=== PATIENT | female | born 1955 | race Caucasian/White ===

== ENCOUNTER 2018-02-21 10:54 | Emergency (ER) | payer BC, OTHER ==
[2018-02-21 11:29] VITALS: BP 134/83; PULSE 65; RESP 20; TEMP 98.6
[2018-02-21] MEDS ORDERED: ASPIRIN 81 MG PO STA (11:52)
[2018-02-21] MEDS ORDERED: NITROGLYCERIN OINT 1 INCH/GM PACKET TOPICAL STA (11:52)
--- NOTE | 2018-02-21 11:55 | ED ---
General Adult HPI - General Chief complaint: Chest Pain Stated complaint: Chest pain Time Seen by Provider: 02/21/18 11:33 Source: patient, RN notes reviewed Mode of arrival: ambulatory Limitations: no limitations - History of Present Illness Initial comments: Patient is a pleasant 62-year-old female presenting to the emergency Department with complaints of chest discomfort and shortness of breath. Onset of symptoms was a few days ago. Patient has mild tightness in her left chest and left upper back. Patient does have some mild dyspnea. Patient has had some mild palpitations. Patient has had some belching. Patient states at times stretching her back out does help improve her symptoms for a short period. Discomfort has been mild rated 3/10. Patient does not feel she needs pain medicine at this time. No fevers. No significant cough. No history of similar symptoms previously. - Related Data Home Medications Medication Instructions Recorded Confirmed Ibuprofen [Motrin] 800 mg PO DAILY PRN 02/21/18 02/21/18 Allergies Allergy/AdvReac Type Severity Reaction Status Date / Time No Known Allergies Allergy Verified 02/21/18 13:46 Review of Systems ROS Statement: Those systems with pertinent positive or pertinent negative responses have been documented in the HPI. ROS Other: All systems not noted in ROS Statement are negative. Constitutional: Denies: fever Eyes: Denies: eye pain ENT: Denies: ear pain Respiratory: Reports: dyspnea. Denies: cough Cardiovascular: Reports: chest pain Endocrine: Denies: fatigue Gastrointestinal: Denies: abdominal pain Genitourinary: Denies: dysuria Musculoskeletal: Reports: as per HPI Skin: Denies: rash Neurological: Denies: weakness Past Medical History Past Medical History: No Reported History History of Any Multi-Drug Resistant Organisms: None Reported Past Surgical History: Orthopedic Surgery Additional Past Surgical History / Comment(s): fx ankle/leg Past Psychological History: No Psychological Hx Reported Smoking Status: Never smoker Past Alcohol Use History: Occasional Past Drug Use History: None Reported General Exam Limitations: no limitations General appearance: alert, in no apparent distress Head exam: Present: atraumatic Eye exam: Present: normal appearance, PERRL ENT exam: Present: normal oropharynx Neck exam: Present: normal inspection Respiratory exam: Present: normal lung sounds bilaterally, chest wall tenderness (Mild left upper chest wall) Cardiovascular Exam: Present: regular rate, normal rhythm Expanded Peripheral pulses: 2+: Radial (R), Radial (L), Dorsalis Pedis (R), Dorsalis Pedis (L) GI/Abdominal exam: Present: soft. Absent: distended, tenderness Extremities exam: Present: normal inspection. Absent: pedal edema, calf tenderness Back exam: Present: normal inspection. Absent: tenderness Neurological exam: Present: alert Psychiatric exam: Present: normal affect, normal mood Skin exam: Present: normal color Course Vital Signs 02/21/18 11:26 Temperature 98.6 F Pulse Rate 65 Respiratory 20 Rate Blood Pressure 134/83 O2 Sat by Pulse 99 Oximetry EKG Findings - EKG Comments: EKG Findings:: Sinus bradycardia 59. MI 188. QRS 80. QT 452. QTC 447. Normal axis. Normal QRS. No acute ST change. Medical Decision Making - Medical Decision Making Patient reevaluated and resting comfortably in bed. No significant symptoms at this time. Patient updated on results and recommendations. Patient is advised to see in the hospital for further testing and evaluation and treatment. This includes cardiology consult. Patient was made aware of limitations of tests and emergency department. Patient is made aware that heart attack and other causes of symptoms has not been ruled out. Patient is also made aware that risk for heart attack in the near future could be present. Despite this patient refuses stay and will leave AGAINST MEDICAL ADVICE. 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 Patient is advised close follow -up, aspirin daily and to return if symptoms worsen - Lab Data Result diagrams: 02/21/18 12:22 02/21/18 12:22 Lab Results 02/21/18 02/21/18 02/21/18 Range/Units 12:22 12:22 12:22 WBC 5.4 (3.8-10.6) k/uL RBC 4.36 (3.80-5.40) m/uL Hgb 13.9 (11.4-16.0) gm/dL Hct 41.7 (34.0-46.0) % MCV 95.6 (80.0-100.0) fL MCH 31.9 (25.0-35.0) pg MCHC 33.4 (31.0-37.0) g/dL RDW 13.0 (11.5-15.5) % Plt Count 250 (150-450) k/uL Neutrophils % 64 % Lymphocytes % 26 % Monocytes % 6 % Eosinophils % 2 % Basophils % 1 % Neutrophils # 3.4 (1.3-7.7) k/uL Lymphocytes # 1.4 (1.0-4.8) k/uL Monocytes # 0.3 (0-1.0) k/uL Eosinophils # 0.1 (0-0.7) k/uL Basophils # 0.0 (0-0.2) k/uL PT (9.0-12.0) sec INR (<1.2) APTT (22.0-30.0) sec D-Dimer (<0.60) mg/L FEU Sodium 139 (137-145) mmol/L Potassium 5.5 H (3.5-5.1) mmol/L Chloride 107 (98-107) mmol/L Carbon Dioxide 25 (22-30) mmol/L Anion Gap 7 mmol/L BUN 14 (7-17) mg/dL Creatinine 0.53 (0.52-1.04) mg/dL Est GFR (CKD-EPI)AfAm >90 (>60 ml/min/1.73 sqM) Est GFR (CKD-EPI)NonAf >90 (>60 ml/min/1.73 sqM) Glucose 71 L (74-99) mg/dL Calcium 9.5 (8.4-10.2) mg/dL Magnesium 2.1 (1.6-2.3) mg/dL Total Bilirubin 0.9 (0.2-1.3) mg/dL AST 43 H (14-36) U/L ALT 30 (9-52) U/L Alkaline Phosphatase 53 (38-126) U/L Total Creatine Kinase 109 (30-135) U/L CK-MB (CK-2) 1.1 (0.0-2.4) ng/mL CK-MB (CK-2) Rel Index 1.0 Troponin I <0.012 (0.000-0.034) ng/mL NT-Pro-B Natriuret Pep pg/mL Total Protein 7.5 (6.3-8.2) g/dL Albumin 4.6 (3.5-5.0) g/dL 02/21/18 02/21/18 Range/Units 12:22 12:22 WBC (3.8-10.6) k/uL RBC (3.80-5.40) m/uL Hgb (11.4-16.0) gm/dL Hct (34.0-46.0) % MCV (80.0-100.0) fL MCH (25.0-35.0) pg MCHC (31.0-37.0) g/dL RDW (11.5-15.5) % Plt Count (150-450) k/uL Neutrophils % % Lymphocytes % % Monocytes % % Eosinophils % % Basophils % % Neutrophils # (1.3-7.7) k/uL Lymphocytes # (1.0-4.8) k/uL Monocytes # (0-1.0) k/uL Eosinophils # (0-0.7) k/uL Basophils # (0-0.2) k/uL PT 10.3 (9.0-12.0) sec INR 1.0 (<1.2) APTT 23.8 (22.0-30.0) sec D-Dimer 0.34 (<0.60) mg/L FEU Sodium (137-145) mmol/L Potassium (3.5-5.1) mmol/L Chloride (98-107) mmol/L Carbon Dioxide (22-30) mmol/L Anion Gap mmol/L BUN (7-17) mg/dL Creatinine (0.52-1.04) mg/dL Est GFR (CKD-EPI)AfAm (>60 ml/min/1.73 sqM) Est GFR (CKD-EPI)NonAf (>60 ml/min/1.73 sqM) Glucose (74-99) mg/dL Calcium (8.4-10.2) mg/dL Magnesium (1.6-2.3) mg/dL Total Bilirubin (0.2-1.3) mg/dL AST (14-36) U/L ALT (9-52) U/L Alkaline Phosphatase (38-126) U/L Total Creatine Kinase (30-135) U/L CK-MB (CK-2) (0.0-2.4) ng/mL CK-MB (CK-2) Rel Index Troponin I (0.000-0.034) ng/mL NT-Pro-B Natriuret Pep 133 pg/mL Total Protein (6.3-8.2) g/dL Albumin (3.5-5.0) g/dL - Radiology Data Radiology results: image reviewed (Chest x-ray shows no acute process) Disposition Clinical Impression: Chest pain Disposition: Left Against Medical Advice Instructions: Chest Pain (ED) Additional Instructions: Please follow-up with primary care physician and cardiology tomorrow. Aspirin daily. Return for increased pain, difficulty breathing, change in or worsening symptoms or any other concerns. Is patient prescribed a controlled substance at d/c from ED?: No Referrals: Sonido Schrader DO [STAFF PHYSICIAN] - 1-2 days Gayle Parham MD [STAFF PHYSICIAN] - 1-2 days Time of Disposition: 14:40
[2018-02-21 12:29] LABS: Basophils % (A) 1 %; Eosinophils # (A) 0.1 k/uL (0-0.7); Eosinophils % (A) 2 %; HCT 41.7 % (34.0-46.0); HGB 13.9 gm/dL (11.4-16.0); Lymphocytes # (A) 1.4 k/uL (1.0-4.8); Lymphocytes % (A) 26 %; MCH 31.9 pg (25.0-35.0); MCHC 33.4 g/dL (31.0-37.0); MCV 95.6 fL (80.0-100.0); Mean Platelet Volume 6.6; Monocytes # (A) 0.3 k/uL (0-1.0); Monocytes % (A) 6 %; Neutrophils # (A) 3.4 k/uL (1.3-7.7); Neutrophils % (A) 64 %; Platelet Count 250 k/uL (150-450); RBC 4.36 m/uL (3.80-5.40); WBC 5.4 k/uL (3.8-10.6)
[2018-02-21 12:37] LABS: ALT 30 U/L (9-52); AST 43 U/L (14-36); Albumin 4.6 g/dL (3.5-5.0); Alkaline Phosphatase 53 U/L (38-126); Anion Gap 7 mmol/L; Blood Urea Nitrogen 14 mg/dL (7-17); Calcium 9.5 mg/dL (8.4-10.2); Carbon Dioxide 25 mmol/L (22-30); Chloride 107 mmol/L (98-107); Glucose 71 mg/dL (74-99); Magnesium 2.1 mg/dL (1.6-2.3); Potassium 5.5 mmol/L (3.5-5.1); Sodium 139 mmol/L (137-145); Total Bilirubin 0.9 mg/dL (0.2-1.3); Total Protein 7.5 g/dL (6.3-8.2)
[2018-02-21 12:42] LABS: Creatine Kinase 109 U/L (30-135)
[2018-02-21 12:52] LABS: D-Dimer 0.34 mg/L FEU (<0.60); Partial Thromboplastin Time 23.8 sec (22.0-30.0); Prothrombin Time 10.3 sec (9.0-12.0)
[2018-02-21 12:55] LABS: Creatine Kinase MB 1.1 ng/mL (0.0-2.4); Troponin I <0.012 ng/mL (0.000-0.034)
--- NOTE | 2018-02-21 13:33 | XR ---
EXAMINATION TYPE: XR chest 2V DATE OF EXAM: 02/21/2018 HISTORY: Chest Pain. REFERENCE: Previous study dated 01/22/2016. FINDINGS: Lung volumes are prominent. Heart size is upper limits of normal. The lungs are clear. Pleu ral spaces are clear. IMPRESSION: 1. COPD. 2. BORDERLINE CARDIOMEGALY.
== END 2018-02-21 14:50 | disposition left against medical advice (07) ==
LOC: EC 10:54
DX: R07.89 Other chest pain (principal); R06.02 Shortness of breath; R00.2 Palpitations; Z53.29 Procedure and treatment not carried out because of patient's decision for other reasons
CPT/HCPCS: 36415; 71046; 80053; 82550; 82553; 83735; 83880; 84484; 85025; 85379; 85610; 85730; 93005; 99285

== ENCOUNTER → 2020-07-18 | Outpatient (CLI) | payer OTHER ==
--- NOTE | 2020-07-18 08:02 | CT ---
EXAMINATION TYPE: CT knee LT wo con DATE OF EXAM: 07/18/2020 COMPARISON: None. HISTORY: Left knee fx displaced lateral condyle tibia, and left knee pain. CT DLP: 528.10 mGycm Automated exposure control for dose reduction was used. FINDINGS: Acute comminuted displaced fracture through the proximal tibia is confirmed involving the lateral veronica f of the tibial meta-epiphysis. This extends to the lateral condyle. There is disruption of the artic ular surface with 13 mm depression on coronal image 23. Loss of articulating surface roughly 2.9 cm transversely same coronal image and 2.5 cm AP diameter sa gittal image 13 is present. Linear fracture line extends distally or inferiorly to the posterior late ral proximal tibial metadiaphysis. No intra-articular loose bodies or fracture fragments are identifi ed. Distal femur is intact. Medial tibial femoral and patellofemoral compartments shows mild narrowing an d mild spurring. There is moderate-sized suprapatellar joint effusion presumed posttraumatic. Extenso r tendon anteriorly is intact. There is superficial subcutaneous edema prepatellar extending into the infrapatellar region. IMPRESSION: Acute comminuted displaced intra-articular fracture lateral half of the proximal tibial m eta-epiphysis. Depression is noted as detailed above.
== END | disposition home or self-care (01) ==
LOC: RADCTMAIN 07:07
PROVIDERS: ATTEND Physician Assistant
DX: S82.192A Other fracture of upper end of left tibia, initial encounter for closed fracture (principal)

== ENCOUNTER → 2022-03-26 | Outpatient (CLI) | payer OTHER ==
--- NOTE | 2022-03-26 16:39 | CT ---
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 Contrast: None Technique: Axial images 2 mm thick sections. Reconstructed images in the coronal and sagittal planes. Images are obtained through plaster splint with 3-D reconstructed images were performed by the techn ologist on a separate computer. Note is made of some reconstruction artifact. FINDINGS: Soft tissue swelling is at the distal hand. Carpal bones as visualized appear intact. Some degenerati ve joint changes are likely present. There is a comminuted fracture of the distal metaphyseal radius with intra-articular extension. Some dorsal impaction may be present. Alignment appears preserved. There is reported displaced avulsion of the ulna. The ulna is not identified on these images. Nondisp laced fracture of the distal ulna may be present. IMPRESSION: 1. IMPACTED COMMINUTED FRACTURE DISTAL METAPHYSEAL RADIUS. 2. AVULSION OF THE ULNAR STYLOID
== END | disposition home or self-care (01) ==
LOC: RADCTMAIN 09:45
PROVIDERS: ATTEND Orthopaedic Surgery
DX: S52.612A Displaced fracture of left ulna styloid process, initial encounter for closed fracture (principal); S52.572A Other intraarticular fracture of lower end of left radius, initial encounter for closed fracture; X58.XXXA Exposure to other specified factors, initial encounter

== ENCOUNTER 2022-04-07 12:27 | Day surgery (SDC) | payer OTHER ==
[2022-04-01 14:32] VITALS: BMI 21.7
[2022-04-07 13:19] VITALS: TEMP 97.7
[2022-04-07] MEDS ORDERED: LACTATED RINGERS 1,000 ML IV ONE (13:28)
[2022-04-07] MEDS ORDERED: HYDROmorphone 0.5 MG/0.5 ML SYRINGE IVP PRN (13:34)
[2022-04-07] MEDS ORDERED: LACTATED RINGERS 1,000 ML IV SCH (13:34)
[2022-04-07] MEDS ORDERED: LIDOCAINE 1% (10MG/ML) FOR IV START INTRADERMA PRN (13:34)
[2022-04-07] MEDS ORDERED: DEXAMETHASONE SOD PHOSPHATE 4 MG/ML 1 ML VIAL IV ONE (13:34)
[2022-04-07] MEDS ORDERED: ONDANSETRON 4 MG/2 ML VIAL IVP ONE (13:34)
[2022-04-07] MEDS ORDERED: ONDANSETRON 4 MG/2 ML VIAL ONE (13:35)
[2022-04-07] MEDS ORDERED: MIDAZOLAM 2 MG/2 ML VIAL IV ONE (13:58)
[2022-04-07] MEDS ORDERED: PROPOFOL 10 MG/ML 20 ML VIAL IV ONE (14:35)
[2022-04-07] MEDS ORDERED: ROPIVACAINE 5 MG/ML 30 ML VIAL ONE (14:35)
[2022-04-07] MEDS ORDERED: fentaNYL (PF) 50 MCG/ML 2 ML AMP ONE (14:35)
[2022-04-07] MEDS ORDERED: MIDAZOLAM 2 MG/2 ML VIAL ONE (14:35)
[2022-04-07] MEDS ORDERED: KETAMINE 10 MG/ML 20 ML VIAL ONE (14:35)
--- NOTE | 2022-04-07 16:33 | P.ANPRN ---
Procedure Note - Anesthesia - Nerve Block Performed Left Axillary Single Date of Procedure: 04/07/22 Procedure Start Time: 13:50 Procedure Stop Time: 13:55 Location of Patient: PreOp Indication: Acute Post-Operative Pain, Requested by Surgeon Sedation Type: Sedate with meaningful contact maintained Preparation: Sterile Prep Position: Supine Needle Types: Olga Needle Gauge: 18 Ultrasound used to visualize needle placement: Yes Ultrasound used to observe medication spread: Yes Injectate: 0.5% Ropivacaine (see comment for volume) (20) Blood Aspirated: No Pain Paresthesia on Injection Noted: No Resistance on Injection: Normal Image Stored and Saved: Yes Events: Uneventful and Well Tolerated
[2022-04-07] MEDS ORDERED: IV FLUID CONTINUATION 1,000 ML IV ONE (17:00)
[2022-04-07 17:06] VITALS: BP 163/82; PULSE 55; RESP 18
--- NOTE | 2022-04-10 18:30 | P.OP ---
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 She sustained an intraarticular distal radius fracture that is quite comminuted with distal fragments. We talked about treatment options and decided to proceed with a dorsal bridge plate. She understands that this will be in place for 3 months while her distal radius heals and will need to be removed in the OR at that point. Description of Procedure: The patient, operative extremity, and procedure were identified in the preop holding area. After informed consent, she was blocked and brought back to the OR. The arm was prepped and draped. After a formal timeout, the tourniquet was inflated. A longitudinal incision was made over the 2nd metacarpal. Extensor tendons were carefully retracted. The ECRL tendon insertion was identified and a freer was introduced through the 2nd dorsal compartment into the forearm. Under fluroscopy, the fracture was reduced and the general placement of the plate was confirmed. The metacarpal oblong hole was the drilled and filled with a nonlocking screw. Proximally a longitudinal incision was made in the dorsal forearm. Dissection was carried down to the forearm fascia. The radial sensory nerve was identified and protected. The interval between the EPB, APL and the extensor tendons was developed to reveal the plate. The oblong hole was drilled and filled with a nonlocking screw. The fracture was then reduced with traction. There was an audible pop and the 2nd metacarpal was found to be fractured through the nonlocking screw. The decision was made to scoot the plate distal to bridge the metacarpal fracture along with the distal radius fracture. Two screws were placed distal and one proximal to the metacarpal fracture. Traction was again applied with the radial screw loosened. Adequate reduction was achieved and the radial side of the plate was filled. Clinically the extensor tendons were not overly tight and a passive fist was easily made. the rotation of the index finger was clinically appropriate. The final XRs showed acceptable reduction of the distal radius and 2nd metacarpal and good hardware placement. The tourniquet was let down, hemostasis achieved, and the wound was closed with 4.0 monocryl, skin glue, and steristrips. Patient was aroused by the anesthesia team and brought to pacu in stable condition.
== END 2022-04-07 17:27 | disposition home or self-care (01) ==
LOC: OR 12:27
PROVIDERS: ATTEND Orthopaedic Surgery Hand Surgery
DX: S52.572A Other intraarticular fracture of lower end of left radius, initial encounter for closed fracture (principal); G89.18 Other acute postprocedural pain; Z86.59 Personal history of other mental and behavioral disorders; Z79.899 Other long term (current) drug therapy; Z98.890 Other specified postprocedural states; X58.XXXA Exposure to other specified factors, initial encounter
CPT/HCPCS: 64417; 25609; 26615; J2250; J1100; J0690; J2405; 64415; 76942